=== PATIENT | male | born 1975 | race Caucasian/White ===

== ENCOUNTER 2020-12-27 16:40 | Emergency (ER) | payer BC ==
[2020-12-27 18:22] LABS: HEMOGLOBIN 17.9 gm/dl (14.0-17.5); RED BLOOD COUNT 5.52 M/UL (4.20-5.50); WHITE BLOOD COUNT 6.8 K/UL (4.5-11.0)
[2020-12-27 18:38] LABS: BUN/CREATININE RATIO 13 (0-10)
[2020-12-27] MEDS ORDERED: ZOFRAN ODT 4 MG4 MG SL (19:14)
[2020-12-27] MEDS ORDERED: CYCLOBENZAPRINE10 MG PO (19:14)
== END 2020-12-27 20:25 | disposition home or self-care (01) ==
LOC: ER1 16:40
PROVIDERS: Emergency Medicine
DX: R11.2 Nausea with vomiting, unspecified (principal); G25.81 Restless legs syndrome; Z20.822 Contact with and (suspected) exposure to COVID-19
CPT/HCPCS: 80053; 83690; 85025; 96372; 96374; 96376; 99284; J2405; J2550; U0002